=== PATIENT | male | born 1990 | race Caucasian/White ===

== ENCOUNTER 2017-06-01 17:40 | Emergency (ER) | payer BC, OTHER ==
[2017-06-01 17:53] VITALS: BP 123/82
--- NOTE | 2017-06-01 18:27 | UC ---
Skin Complaint HPI - HPI Summary HPI Summary: Patient presents with complaints or a rash that comes and goes on his right upper arm, and now he has a dry patch under his left eye. He states the rash on his arm in small circular dry patch. and the area under his left eye looks like a patch of dry skin. He has been applying lotion with minimal relief. - History of Current Complaint Hx Obtained From: Patient Onset/Duration: Gradual Onset Skin Exposure Onset/Duration: Weeks Ago Onset Severity: Mild Current Severity: Mild Pain Intensity: 0 Location: Discrete - right uppe arm under left eye Character: Pruritus Aggravating Factor(s): Nothing Alleviating Factor(s): Nothing Associated Signs & Symptoms: Positive: Negative <Angie Garcia - Last Filed: 06/01/17 18:19> <Jenn Castellano - Last Filed: 06/01/17 18:38> - History of Current Complaint Chief Complaint: [facility] Time Seen by Provider: 06/01/17 18:03 Stated Complaint: RASH ON ARM - Allergy/Home Medications Allergies/Adverse Reactions: Allergies Allergy/AdvReac Type Severity Reaction Status Date / Time No Known Allergies Allergy Verified 06/01/17 17:53 Review of Systems Constitutional: Negative Skin: Rash Eyes: Negative ENT: Negative Respiratory: Negative Cardiovascular: Negative Gastrointestinal: Negative Genitourinary: Negative Motor: Negative Neurovascular: Negative Musculoskeletal: Negative Neurological: Negative Psychological: Negative Is Patient Immunocompromised?: No All Other Systems Reviewed And Are Negative: Yes <Angie Garcia - Last Filed: 06/01/17 18:19> PMH/Surg Hx/FS Hx/Imm Hx Previously Healthy: Yes - Surgical History Surgical History: Yes Surgery Procedure, Year, and Place: Right Shoulder Labrum, 2010, [place] - Family History Known Family History: Positive: None - Social History Occupation: Employed Full-time Lives: Alone Alcohol Use: None Substance Use Type: None Smoking Status (MU): Never Smoked Tobacco - Immunization History Most Recent Influenza Vaccination: Current for <Angie Garcia - Last Filed: 06/01/17 18:19> Physical Exam Triage Information Reviewed: Yes Appearance: Well-Appearing Vital Signs: Initial Vital Signs Temp 97.7 F 06/01/17 17:50 Pulse 46 06/01/17 17:50 Resp 16 06/01/17 17:50 BP 123/82 06/01/17 17:50 Pulse Ox 100 06/01/17 17:50 Vital Signs Reviewed: Yes Eye Exam: Normal ENT Exam: Normal Neck exam: Normal Neck: Positive: 1 Respiratory Exam: Normal Cardiovascular Exam: Normal Skin Exam: Normal <Angie Garcia - Last Filed: 06/01/17 18:19> Vital Signs: Initial Vital Signs Temp 97.7 F 06/01/17 17:50 Pulse 46 06/01/17 17:50 Resp 16 06/01/17 17:50 BP 123/82 06/01/17 17:50 Pulse Ox 100 06/01/17 17:50 <Jenn Castellano - Last Filed: 06/01/17 18:38> Course/Dx - Course Course Of Treatment: Patient presents with an unremarkable past medical history. He does have dry skin, and recently has had a dry patch the is small aboyut 1 cm in diameter with slight central clearing, and also a linear dry path under his right eye. It is most likly eczema, so I will trial hydrocortisone 1% cream, and if that does not alleviate his symtpom within one- two weeks he was told to go to the diabetologist. - Differential Diagnoses - Skin Complaint Differential Diagnoses: Eczema - Diagnoses Provider Diagnoses: eczema <Angie Garcia - Last Filed: 06/01/17 18:19> Discharge <GarciaAngie - Last Filed: 06/01/17 18:19> <Jenn Castellano - Last Filed: 06/01/17 18:38> - Discharge Plan Condition: Stable Disposition: HOME Prescriptions: Hydrocortisone 1% Oint(NF) [Hydrocortisone 1% Oint (NF)] 1 applic TOPICAL BID # 1 tube Patient Education Materials: Hydrocortisone (On the skin), Eczema (ED) Referrals: Crys Ng [Medical Doctor] - Jhonathan Roberts MD [Primary Care Provider] - Attestation Statement User Type: Provider - I was available for consult. This patient was seen by the [facility]. The patient was not presented to, seen by, or examined by me. -Nicki <Jenn Castellano - Last Filed: 06/01/17 18:38>
== END 2017-06-01 18:31 | disposition home or self-care (01) ==
LOC: UCEAST 17:40
DX: L30.9 Dermatitis, unspecified (principal)
CPT/HCPCS: 99212; G0463